=== PATIENT | male | born 1980 | race American Indian/Alaskan Native ===

== ENCOUNTER 2016-07-24 21:01 | Observation (INO) | payer MEDICAID ==
[2016-07-24 21:01] VITALS: BMI 26.4
[2016-07-24 21:05] VITALS: BP 133/79; PULSE 81; RESP 18; TEMP 98; O2SAT 98
--- NOTE | 2016-07-24 21:41 | ED PDOC ---
HPI: Psych/Substance Abuse Time Seen by Provider: 07/24/16 21:13 Chief Complaint (Nursing): Alcohol Ingestion History Per: Patient, EMS History/Exam Limitations: intoxication Additional Complaint(s): Pt. found on the street unable to stand up and walk due to ETOH intoxication. Pt. admits to drinking "vodka" today. Offers no complaints. Past Medical History Reviewed: Historical Data, Nursing Documentation, Vital Signs Vital Signs: Last Vital Signs Temp 98 F 07/24/16 21:02 Pulse 81 07/24/16 21:02 Resp 18 07/24/16 21:02 BP 133/79 07/24/16 21:02 Pulse Ox 98 07/24/16 21:02 - Medical History PMH: Anxiety, Depression Denies: Diabetes, Hepatitis, HIV, HTN, Chronic Kidney Disease, Seizures, Sexually Transmitted Disease - Family History Family History: States: Unknown Family Hx - Immunization History Hx Tetanus Toxoid Vaccination: No Hx Influenza Vaccination: No Hx Pneumococcal Vaccination: No - Home Medications Home Medications: Ambulatory Orders Medication Instructions Recorded FLUoxetine [Prozac] 20 mg PO DAILY #30 cap 01/24/16 Gabapentin [Neurontin] 300 mg PO BID #60 cap 01/24/16 Gabapentin [Neurontin] 600 mg PO HS #30 tab 01/24/16 - Allergies Allergies/Adverse Reactions: Allergies Allergy/AdvReac Type Severity Reaction Status Date / Time No Known Allergies Allergy Verified 01/16/16 15:19 Review of Systems Review Of Systems: ROS cannot be obtained secondary to pt's inabilty to answer questions. Physical Exam - Reviewed Nursing Documentation Reviewed: Yes Vital Signs Reviewed: Yes - Physical Exam Appears: Positive for: Well, Non-toxic, No Acute Distress Head Exam: Positive for: ATRAUMATIC, NORMAL INSPECTION, NORMOCEPHALIC Skin: Positive for: Normal Color, Warm. Negative for: Rash Eye Exam: Positive for: EOMI, Normal appearance, PERRL ENT: Positive for: Normal ENT Inspection Neck: Positive for: Normal, Painless ROM Cardiovascular/Chest: Positive for: Regular Rate, Rhythm Respiratory: Positive for: CNT, Normal Breath Sounds Gastrointestinal/Abdominal: Positive for: Normal Exam, Soft. Negative for: Tenderness Back: Positive for: Normal Inspection Extremity: Positive for: Normal ROM Neurologic/Psych: Positive for: Alert, Oriented, Gait (unsteady), Other ( slurred speech; AOB). Negative for: Aphasia, Facial Droop - ECG O2 Sat by Pulse Oximetry: 98 ED OBSERVATION Date of observation admission: 07/24/16 Time of observation admission: 21:41 - Observation admission statement Patient is being placed in observation because:: ETOH - Progress Note Progress Note: 07/24/16 21:41 Labs ordered. FSBS: 109 07/24/16 23:05 ETOH 449 Sleeping comfortably. easily arousable. Disposition - Clinical Impression Clinical Impression: Alcohol intoxication - Patient ED Disposition Is Patient to be Admitted: Transfer of Care (Signed out to Kin CHOWDHURY pending sobriety.) - Disposition Disposition Time: 00:00 Condition: STABLE
--- NOTE | 2016-07-25 01:48 | ED PDOC ---
- ECG O2 Sat by Pulse Oximetry: 98 Medical Decision Making Medical Decision Making: Case endorsed to filing writer from TRENTON Jarrell at midnight pending sobriety HPI: Psych/Substance Abuse Time Seen by Provider: 07/24/16 21:13 Chief Complaint (Nursing): Alcohol Ingestion History Per: Patient, EMS History/Exam Limitations: intoxication Additional Complaint(s): Pt. found on the street unable to stand up and walk due to ETOH intoxication. Pt. admits to drinking "vodka" today. Offers no complaints. ETOH 449 at 2140 Upon my eval, Pt asleep in NAD. Arousable to verbal stimuli Pt awake and urinated on the floor at 0230, asking for a mop to clean and apologetic. Stable for discharge on re-eval Disposition - Clinical Impression Clinical Impression: Alcohol intoxication - POA Present On Arrival: None - Disposition Disposition: Routine/Home Disposition Time: 02:56 Condition: STABLE
== END 2016-07-25 02:14 | disposition home or self-care (01) ==
LOC: H.ER 21:01 → H.EROBSV 21:27
PROVIDERS: ADMIT Emergency Medicine; ATTEND Emergency Medicine
DX: F10.129 Alcohol abuse with intoxication, unspecified (principal); Y90.8 Blood alcohol level of 240 mg/100 ml or more; F32.9 Major depressive disorder, single episode, unspecified; F41.9 Anxiety disorder, unspecified

== ENCOUNTER 2016-07-27 20:49 | Observation (INO) | payer MEDICAID ==
[2016-07-27 20:50] VITALS: BMI 26.4
[2016-07-27 23:20] LABS: ALB/GLOB RATIO 1.3 (1.0-2.1); ALKALINE PHOSPHATASE 49 U/L (38-126); ALT/SGPT 52 U/L (21-72); AST/SGOT 58 U/L (17-59); BILIRUBIN,TOTAL 0.4 mg/dl (0.2-1.3); BLOOD UREA NITROGEN 13 mg/dl (9-20); CALCIUM 8.4 mg/dL (8.4-10.2); CARBON DIOXIDE 31 mmol/L (22-30); CHLORIDE 104 mmol/L (98-107); GFR AFRICAN-AMERICAN > 60; GLUCOSE,RANDOM 152 mg/dL (75-110); POTASSIUM 3.8 MMOL/L (3.6-5.0); SODIUM 149 mmol/l (132-148)
[2016-07-27 23:32] LABS: ALCOHOL SERUM 506 mg/dl (0-10)
[2016-07-27 23:33] LABS: BASO % 0.8 % (0.0-2.0); EOS # 0.1 K/uL (0.0-0.7); EOS % 1.9 % (0.0-4.0); HEMATOCRIT 41.4 % (35.0-51.0); LYMPH # 3.1 K/uL (1.0-4.3); LYMPH % 55.1 % (20.0-40.0); MEAN CELL VOLUME 87.6 fl (80.0-94.0); MEAN CORPUSCULAR HEMOGLOBIN 29.2 pg (27.0-31.0); MEAN CORPUSCULAR HGB CONC 33.3 g/dL (33.0-37.0); MONO # 0.3 K/uL (0.0-0.8); MONO % 5.8 % (0.0-10.0); NEUT % 36.4 % (50.0-75.0); NRBC % 0.1 % (0.0-0.0); RED CELL DISTRIBUTION WIDTH 18.7 % (11.5-14.5); WHITE BLOOD COUNT 5.6 K/uL (4.8-10.8)
--- NOTE | 2016-07-28 00:24 | ED PDOC ---
HPI: Psych/Substance Abuse Time Seen by Provider: 07/27/16 22:10 Chief Complaint (Nursing): Alcohol Ingestion Chief Complaint (Provider): Alcohol Ingestion ED Caveat: Intoxicated History Per: Patient History/Exam Limitations: intoxication Current Symptoms Are (Timing): Still Present Suicide/Self Injury Attempted (Context): None Modifying Factor(s): Alcohol Additional Complaint(s): 35 year old male presents to ED due to alcohol intoxication and has a past history of anxiety and depression. Patient is unable to provide any history due to intoxicated state. PCP: None Past Medical History Reviewed: Historical Data, Nursing Documentation, Vital Signs Vital Signs: Last Vital Signs Temp 98.4 F 07/27/16 21:29 Pulse 83 07/27/16 21:29 Resp 16 07/27/16 21:29 BP 157/77 H 07/27/16 21:29 Pulse Ox 95 07/27/16 21:29 - Medical History PMH: Anxiety, Depression Denies: Diabetes, Hepatitis, HIV, HTN, Chronic Kidney Disease, Seizures, Sexually Transmitted Disease - Surgical History Surgical History: No Surg Hx - Family History Family History: States: No Known Family Hx - Social History Current smoker - smoking cessation education provided: Yes Alcohol: > 2 Drinks/Day - Immunization History Hx Tetanus Toxoid Vaccination: No Hx Influenza Vaccination: No Hx Pneumococcal Vaccination: No - Home Medications Home Medications: Ambulatory Orders Medication Instructions Recorded FLUoxetine [Prozac] 20 mg PO DAILY #30 cap 01/24/16 Gabapentin [Neurontin] 300 mg PO BID #60 cap 01/24/16 Gabapentin [Neurontin] 600 mg PO HS #30 tab 01/24/16 - Allergies Allergies/Adverse Reactions: Allergies Allergy/AdvReac Type Severity Reaction Status Date / Time No Known Allergies Allergy Verified 01/16/16 15:19 Review of Systems Review Of Systems: ROS cannot be obtained secondary to pt's inabilty to answer questions. Physical Exam - Reviewed Nursing Documentation Reviewed: Yes Vital Signs Reviewed: Yes - Physical Exam Appears: Positive for: No Acute Distress Skin: Positive for: Normal Color Cardiovascular/Chest: Positive for: Regular Rate, Rhythm Respiratory: Positive for: Normal Breath Sounds. Negative for: Respiratory Distress Gastrointestinal/Abdominal: Positive for: Normal Exam Extremity: Negative for: Deformity Neurologic/Psych: Positive for: Oriented, Gait (Unsteady), Other (Slurred speech ). Negative for: Alert (Somnolent but arousable), Motor/Sensory Deficits - Laboratory Results Result Diagrams: 07/27/16 23:30 07/27/16 23:06 - ECG O2 Sat by Pulse Oximetry: 95 (RA) Pulse Ox Interpretation: Normal Medical Decision Making Medical Decision Makin Initial impression: alcohol intoxication Initial plan: * EtOH serum * Labs * UDrug Screen * Accucheck * ED OBS Admission * UA All further documentation will take place in the ED OBS section of the chart. Scribe Attestation: Documented by Xena Arshad acting as a scribe for Jhonny Tran MD. Scribe Attestation: All medical record entries made by the Scribe were at my direction and personally dictated by me. I have reviewed the chart and agree that the record accurately reflects my personal performance of the history, physical exam, medical decision making, and the department course for this patient. I have also personally directed, reviewed, and agree with the discharge instructions and disposition. ED OBSERVATION Date of observation admission: 07/27/16 Time of observation admission: 23:24 - Observation admission statement Patient is being placed in observation because:: Alcohol intoxication - Goals of Observation Goals of observation are:: Clinical sobriety - Progress Note Progress Note: 07/28/16 00:28 Patient resting comfortably. 07/28/16 01:46 Patient resting comfortably. 07/28/16 03:04 Patient resting comfortably. 07/28/16 04:42 Patient resting comfortably. 07/28/16 06:12 Patient resting comfortably. 07/28/16 07:00 Patient signed out to Dr. Comer pending sobriety and re-evaluation. Disposition - Clinical Impression Clinical Impression: Alcohol abuse with uncomplicated intoxication - Patient ED Disposition Is Patient to be Admitted: Transfer of Care - Disposition Disposition: Transfer of Care Disposition Time: 22:00 Condition: GOOD Patient Signed Over To: Kings Comer Handoff Comments: Pending sobriety and re-evaluation - Pt Status Changed To: Hospital Disposition Of: Observation
[2016-07-28 06:38] VITALS: TEMP 98.1
--- NOTE | 2016-07-28 07:11 | ED PDOC ---
- Laboratory Results Result Diagrams: 07/27/16 23:30 07/27/16 23:06 - ECG O2 Sat by Pulse Oximetry: 96 - Progress ED Course And Treament: Assumed care from Dr Tran. Pending clinical sobriety and final disposition. Medical Decision Making Medical Decision Making: Pt is alert and awake. Ambulatory with steady gait. No criteria for crisis eval. Sathish SI/HI or any psychotic complains. NO psych behaviour. Disposition Doctor Will See Patient In The: Office Counseled Patient/Family Regarding: Studies Performed, Diagnosis, Need For Followup - Clinical Impression Clinical Impression: Alcohol abuse with uncomplicated intoxication - POA Present On Arrival: None - Disposition Disposition: Routine/Home Disposition Time: 11:58 Condition: GOOD
[2016-07-28 09:20] VITALS: RESP 18
[2016-07-28 12:05] VITALS: BP 129/79; PULSE 72
[2016-07-30 23:03] VITALS: O2SAT 96
== END 2016-07-28 11:58 | disposition home or self-care (01) ==
LOC: H.ER 20:49 → H.EROBSV 22:34
PROVIDERS: ADMIT Emergency Medicine; ATTEND Emergency Medicine
DX: F10.120 Alcohol abuse with intoxication, uncomplicated (principal); Y90.8 Blood alcohol level of 240 mg/100 ml or more; F41.8 Other specified anxiety disorders; F17.200 Nicotine dependence, unspecified, uncomplicated

== ENCOUNTER 2016-07-28 17:56 | Emergency (ER) | payer MEDICAID ==
[2016-07-28 17:56] VITALS: BMI 26.4
[2016-07-28 18:04] VITALS: BP 145/76; PULSE 80; RESP 18; TEMP 98.6; O2SAT 96
--- NOTE | 2016-07-28 18:11 | ED PDOC ---
HPI: Psych/Substance Abuse Time Seen by Provider: 07/28/16 18:06 Chief Complaint (Nursing): Alcohol Ingestion Chief Complaint (Provider): "I just lay down" History Per: Patient Additional Complaint(s): Pt reports [facility]. He was tired and admits he was drinking. He lied down on the ground and then bystanders called 911. No fall No confusion No injury No suicidal or homicidal ideation He reports [facility] just [facility] to [facility] to be [facility]. Past Medical History Reviewed: Historical Data, Nursing Documentation, Vital Signs Vital Signs: Last Vital Signs Temp 98.6 F 07/28/16 18:01 Pulse 80 07/28/16 18:01 Resp 18 07/28/16 18:01 BP 145/76 07/28/16 18:01 Pulse Ox 96 07/28/16 18:01 - Medical History PMH: Anxiety, Depression Denies: Diabetes, Hepatitis, HIV, HTN, Chronic Kidney Disease, Seizures, Sexually Transmitted Disease - Family History Family History: States: Unknown Family Hx - Social History Alcohol: > 2 Drinks/Day - Immunization History Hx Tetanus Toxoid Vaccination: No Hx Influenza Vaccination: No Hx Pneumococcal Vaccination: No - Home Medications Home Medications: Ambulatory Orders Medication Instructions Recorded FLUoxetine [Prozac] 20 mg PO DAILY #30 cap 01/24/16 Gabapentin [Neurontin] 300 mg PO BID #60 cap 01/24/16 Gabapentin [Neurontin] 600 mg PO HS #30 tab 01/24/16 - Allergies Allergies/Adverse Reactions: Allergies Allergy/AdvReac Type Severity Reaction Status Date / Time No Known Allergies Allergy Verified 01/16/16 15:19 Review of Systems ROS Statement: Except As Marked, All Systems Reviewed And Found Negative Neurological: Negative for: Weakness, Numbness, Confusion, Seizures, Altered Mental Status, Dizziness Psych: Negative for: Anxiety, Depression Physical Exam - Reviewed Nursing Documentation Reviewed: Yes Vital Signs Reviewed: Yes - Physical Exam Appears: Positive for: Well, No Acute Distress (slightly unkempt) Head Exam: Positive for: ATRAUMATIC Skin: Positive for: Warm, Dry Eye Exam: Positive for: EOMI, PERRL, Conjunctival injection ENT: Positive for: Normal ENT Inspection Neck: Positive for: Painless ROM, Supple Cardiovascular/Chest: Positive for: Regular Rate, Rhythm, Chest Non Tender. Negative for: Murmur Respiratory: Positive for: Normal Breath Sounds. Negative for: Wheezing, Respiratory Distress Gastrointestinal/Abdominal: Positive for: Soft. Negative for: Tenderness Back: Positive for: Normal Inspection Extremity: Positive for: Normal ROM. Negative for: Deformity Lymphatic: Negative for: Adenopathy Neurologic/Psych: Positive for: Alert, stock broker II-XII (intact), Oriented (x3), Gait (steady). Negative for: Motor/Sensory Deficits, Aphasia, Other (signs of withdrawal) - ECG O2 Sat by Pulse Oximetry: 96 Disposition - Clinical Impression Clinical Impression: Alcohol abuse - Disposition Referrals: [facility] [Outside] [facility] [Outside] Disposition: Routine/Home Disposition Time: 18:08 Condition: GOOD Additional Instructions: DRINK IN MODERATION OR DON'T DRINK AT ALL TRY TO STAY INDOORS Instructions: Abuse of Alcohol (ED)
== END 2016-07-28 18:31 | disposition home or self-care (01) ==
LOC: H.ER 17:56
DX: F10.129 Alcohol abuse with intoxication, unspecified (principal)

== ENCOUNTER 2016-07-28 18:51 | Inpatient (IN) | payer MEDICAID ==
[2016-07-28 18:51] VITALS: BMI 26.4
[2016-07-28 19:49] LABS: BASO % 0.8 % (0.0-2.0); EOS # 0.1 K/uL (0.0-0.7); EOS % 2.3 % (0.0-4.0); HEMATOCRIT 43.3 % (35.0-51.0); LYMPH # 3.9 K/uL (1.0-4.3); LYMPH % 65.3 % (20.0-40.0); MEAN CELL VOLUME 87.7 fl (80.0-94.0); MEAN CORPUSCULAR HEMOGLOBIN 28.9 pg (27.0-31.0); MEAN PLATELET VOLUME 8.1 fl (7.2-11.7); MONO # 0.3 K/uL (0.0-0.8); MONO % 4.4 % (0.0-10.0); NEUT # 1.6 K/uL (1.8-7.0); NEUT % 27.2 % (50.0-75.0); NRBC % 0.1 % (0.0-0.0); RED CELL DISTRIBUTION WIDTH 18.8 % (11.5-14.5)
[2016-07-28] MEDS ORDERED: Multivitamin (MVI) 10 ML, Thiamine 100 MG, Folic Acid 1 MG in Sodium Chloride 0.9% 1,00... IV ONE (20:00)
[2016-07-28 20:17] LABS: ALB/GLOB RATIO 1.3 (1.0-2.1); ALKALINE PHOSPHATASE 52 U/L (38-126); ALT/SGPT 56 U/L (21-72); AST/SGOT 57 U/L (17-59); BILIRUBIN,TOTAL 0.5 mg/dl (0.2-1.3); BLOOD UREA NITROGEN 10 mg/dl (9-20); CALCIUM 8.1 mg/dL (8.4-10.2); CARBON DIOXIDE 28 mmol/L (22-30); CHLORIDE 103 mmol/L (98-107); GFR AFRICAN-AMERICAN > 60; GLUCOSE,RANDOM 98 mg/dL (75-110); POTASSIUM 4.3 MMOL/L (3.6-5.0); SODIUM 147 mmol/l (132-148); TOTAL PROTEIN 8.4 G/DL (6.3-8.2)
--- NOTE | 2016-07-28 20:27 | ED PDOC ---
HPI: Psych/Substance Abuse Time Seen by Provider: 07/28/16 19:05 Chief Complaint (Nursing): Altered Mental Status Chief Complaint (Provider): alcohol intoxication Additional Complaint(s): Pt found on the ground outdoors. Was just in this ER about an hour ago for alcohol intox. At that time he was alert and oriented without complaint. Currently he is unable to answer questions. Multiple visits for alcohol intoxication. Past Medical History Reviewed: Historical Data, Nursing Documentation, Vital Signs, Unable To Obtain (obtained from previous charts) Vital Signs: Last Vital Signs Temp 98.8 F 07/28/16 18:58 Pulse 84 07/28/16 18:58 Resp 16 07/28/16 18:58 BP Pulse Ox 100 07/28/16 18:58 - Medical History PMH: Anxiety, Depression Denies: Diabetes, Hepatitis, HIV, HTN, Chronic Kidney Disease, Seizures, Sexually Transmitted Disease - Family History Family History: States: Unknown Family Hx - Immunization History Hx Tetanus Toxoid Vaccination: No Hx Influenza Vaccination: No Hx Pneumococcal Vaccination: No - Home Medications Home Medications: Ambulatory Orders Medication Instructions Recorded FLUoxetine [Prozac] 20 mg PO DAILY #30 cap 01/24/16 Gabapentin [Neurontin] 300 mg PO BID #60 cap 01/24/16 Gabapentin [Neurontin] 600 mg PO HS #30 tab 01/24/16 - Allergies Allergies/Adverse Reactions: Allergies Allergy/AdvReac Type Severity Reaction Status Date / Time No Known Allergies Allergy Verified 01/16/16 15:19 Review of Systems Review Of Systems: ROS cannot be obtained secondary to pt's inabilty to answer questions. Physical Exam - Reviewed Nursing Documentation Reviewed: Yes Vital Signs Reviewed: Yes - Physical Exam Appears: Positive for: In Acute Distress Head Exam: Positive for: ATRAUMATIC, NORMOCEPHALIC Skin: Positive for: Warm, Dry Eye Exam: Positive for: EOMI, PERRL, Conjunctival injection ENT: Positive for: Other (alcohol on breath) Neck: Positive for: Supple, Trachea Midline Cardiovascular/Chest: Positive for: Regular Rate, Rhythm, Chest Non Tender. Negative for: Murmur Respiratory: Positive for: Normal Breath Sounds. Negative for: Wheezing, Respiratory Distress Gastrointestinal/Abdominal: Positive for: Soft. Negative for: Tenderness Back: Positive for: Normal Inspection. Negative for: Vertebral Tenderness Extremity: Positive for: Normal ROM. Negative for: Pedal Edema Lymphatic: Negative for: Adenopathy Neurologic/Psych: Positive for: Other (obtunded but localizes pain and moans, + spontaneous eye opening, +gag reflex). Negative for: Alert, Oriented, Motor/ Sensory Deficits - Laboratory Results Result Diagrams: 07/29/16 11:20 07/29/16 11:25 Interpretation Of Abn Labs: Labs demonstrate markedly elevated blood alcohol level - ECG O2 Sat by Pulse Oximetry: 100 Disposition - Clinical Impression Clinical Impression: Alcohol intoxication Discussed With Dr.: Brian Reese Comment: Pt needs prolonged observation for potentially life threatening level of alcohol Counseled Patient/Family Regarding: Studies Performed - Disposition Disposition Time: 19:20 Condition: GUARDED - Pt Status Changed To: Hospital Disposition Of: Observation - POA Present On Arrival: None
[2016-07-28 21:03] LABS: ALCOHOL SERUM 641 mg/dl (0-10)
--- NOTE | 2016-07-28 22:21 | CT ---
EXAM: CT Head Without Intravenous Contrast CLINICAL HISTORY: 35 years old, male; Signs and symptoms; Altered mental status/memory loss; Other: Alcohol intox. ; Additional info: AMS. Sent phy. Doc. With request TECHNIQUE: Axial computed tomography images of the head/brain without intravenous contrast. This CT exam was performed using one or more of the following dose reduction techniques: automated exposure control, adjustment of the mA and/or kV according to patient size, and/or use of iterative reconstruction technique. Coronal and sagittal reformatted images were created and reviewed. COMPARISON: CT - HEAD W/O CONTRAST 10/11/2014 1:10:24 AM FINDINGS: Brain: Minimal atrophy. No intracranial hemorrhage. No mass. No definite edema. Ventricles: No hydrocephalus. Bones/joints: No acute fracture. Soft tissues: Unremarkable. Sinuses: Scattered minimal mucosal thickening. Small LEFT maxillary retention cyst. Mastoid air cells: No mastoid effusion. Orbits: Unremarkable as visualized. IMPRESSION: 1. No acute intracranial abnormality. 2. Incidental/non-acute findings are described above.
[2016-07-29] MEDS ORDERED: Dextrose 5%/Lactated Ringer's 1,000 ML IV SCH (03:45)
[2016-07-29] MEDS ORDERED: Multivitamin (MVI) 10 ML, Thiamine 100 MG, Folic Acid 1 MG in Sodium Chloride 0.9% 1,00... IV ONE (10:47)
[2016-07-29 11:37] LABS: MEAN CELL VOLUME 86.6 fl (80.0-94.0); MEAN CORPUSCULAR HEMOGLOBIN 28.8 pg (27.0-31.0); MEAN CORPUSCULAR HGB CONC 33.3 g/dL (33.0-37.0); WHITE BLOOD COUNT 6.1 K/uL (4.8-10.8)
[2016-07-29 11:52] LABS: ALCOHOL SERUM 206 mg/dl (0-10); AMYLASE 754 U/L (30-110); BLOOD UREA NITROGEN 11 mg/dl (9-20); CALCIUM 7.8 mg/dL (8.4-10.2); CARBON DIOXIDE 26 mmol/L (22-30); CHLORIDE 101 mmol/L (98-107); GFR AFRICAN-AMERICAN > 60; GLUCOSE,RANDOM 101 mg/dL (75-110); LIPASE 224 U/L (23-300); POTASSIUM 3.4 MMOL/L (3.6-5.0); SODIUM 141 mmol/l (132-148)
[2016-07-29] MEDS ORDERED: Potassium Chloride 20 mEq/15 ml LIQ UD PO ONE (13:00)
[2016-07-30] MEDS ORDERED: Multivitamin (MVI) 10 ML, Thiamine 100 MG, Folic Acid 1 MG in Sodium Chloride 0.9% 1,00... IV ONE (05:03)
[2016-07-30 07:31] LABS: AMYLASE 481 U/L (30-110); BLOOD UREA NITROGEN 7 mg/dl (9-20); CALCIUM 7.8 mg/dL (8.4-10.2); CARBON DIOXIDE 28 mmol/L (22-30); CHLORIDE 99 mmol/L (98-107); GFR AFRICAN-AMERICAN > 60; GLUCOSE,RANDOM 76 mg/dL (75-110); POTASSIUM 3.8 MMOL/L (3.6-5.0); SODIUM 136 mmol/l (132-148)
--- NOTE | 2016-07-30 08:00 | CP.PCM.CON ---
History of Present Illness - History of Present Illness History of Present Illness: Psychiatry consult called for evaluation of ETOH withdrawal HPI: 35 year old male w/ previous psychiatric admission for depression and alcohol abuse, was admitted for treatment of ETOH withdrawal. Patient denies current psychiatric compliants. No depression/anxiety/suicidal or homicidal ideation or psychosis. He is not interested in psychiatric treatment or psychotropic medications at this time. He denies acute symptoms of ETOH withdrawal. +Chronic alcohol abuse. Past psych hx: Previous admissions to [facility] and [facility]. No currently compliant with any psychiatric tx. PMHx: Denies acute medical problems SHx: +Chronic ETOH abuse. From [facility]. Family Hx: Unknown family history (family is in [facility]) All: NKDA MSE: A + O x 3, calm/cooperative, normal speech/rhythm volume, thought process linear/coherent, thought content- no delusions, no hallucinations, NO SI/HI. Poor insight/judgment re: chronic alcohol abuse. Impression: Alcohol Abuse, not currently in withdrawal Recommendations: -No acute psychiatric admission indicated at this time -Patient not agreeable to psychotropic medications at this time -Patient would benefit from outpatient psychotherapy and substance abuse treatment Past Patient History - Infectious Disease Hx of Infectious Diseases: None - Past Medical History & Family History Past Medical History?: Yes - Past Social History Smoking Status: Never Smoked - CARDIAC Hx Hypertension: No - PULMONARY Hx Respiratory Disorders: No - NEUROLOGICAL Hx Seizures: No - HEENT Hx HEENT Problems: No - RENAL Hx Chronic Kidney Disease: No - ENDOCRINE/METABOLIC Hx Endocrine Disorders: No - HEMATOLOGICAL/ONCOLOGICAL Hx Human Immunodeficiency Virus (HIV): No - INTEGUMENTARY Hx Dermatological Problems: No - MUSCULOSKELETAL/RHEUMATOLOGICAL Hx Musculoskeletal Disorders: No Hx Falls: No - GASTROINTESTINAL Hx Gastrointestinal Disorders: No - GENITOURINARY/GYNECOLOGICAL Hx Sexually Transmitted Disorders: No - PSYCHIATRIC Hx Anxiety: Yes Hx Depression: Yes - SURGICAL HISTORY Hx Surgeries: No - ANESTHESIA Hx Anesthesia: No Meds Allergies/Adverse Reactions: Allergies Allergy/AdvReac Type Severity Reaction Status Date / Time No Known Allergies Allergy Verified 01/16/16 15:19 - Medications Medications: Current Medications Acetaminophen (Tylenol 325mg Tab) 650 mg PO Q4 PRN PRN Reason: Headache Last Admin: 07/30/16 05:06 Dose: 650 mg Chlordiazepoxide (Librium) 50 mg PO Q4H PRN PRN Reason: Symptoms of alcohol withdrawl Chlordiazepoxide (Librium) 25 mg PO Q8 RAMA Last Admin: 07/30/16 01:13 Dose: 25 mg Multivitamins/Vitamin C 10 ml/Thiamine HCl 100 mg/ Folic Acid 1 mg/ Sodium Chloride 1,011.2 mls @ 100 mls/hr IV .Q10H7M ONE Stop: 07/30/16 15:09 Last Admin: 07/30/16 06:59 Dose: 100 mls/hr Lorazepam (Ativan) 1 mg IVP Q4H PRN PRN Reason: Symptoms of alcohol withdrawl Last Admin: 07/29/16 20:46 Dose: 1 mg Results - Vital Signs Recent Vital Signs: Last Vital Signs Temp 98.6 F 07/30/16 05:17 Pulse 61 07/30/16 05:17 Resp 20 07/30/16 05:17 BP 146/87 07/30/16 05:17 Pulse Ox 98 07/30/16 05:17 - Labs Result Diagrams: 07/29/16 11:20 07/30/16 05:45 Labs: Laboratory Results - last 24 hr 07/29/16 07/29/16 07/30/16 11:20 11:25 05:45 WBC 6.1 RBC 4.50 Hgb 13.0 Hct 39.0 MCV 86.6 MCH 28.8 MCHC 33.3 RDW 18.0 H Plt Count 299 Sodium 141 136 Potassium 3.4 L 3.8 Chloride 101 99 Carbon Dioxide 26 28 Anion Gap 17 13 BUN 11 7 L Creatinine 0.8 0.8 Est GFR ( Amer) > 60 > 60 Est GFR (Non-Af Amer) > 60 > 60 Random Glucose 101 76 Calcium 7.8 L 7.8 L Amylase 754 H 481 H D Lipase 224 Alcohol, Quantitative 206 H
--- NOTE | 2016-07-30 11:24 | CP.PCM.DIS ---
Provider - Provider Date of Admission: 07/28/16 19:22 Attending physician: Brian Reese MD Time Spent in preparation of Discharge (in minutes): 45 Diagnosis - Discharge Diagnosis (1) Alcohol abuse with intoxication Status: Acute Comment: Final etOH: <10, no DTs, pt safe for discharge. Hospital Course - Lab Results Lab Results: Most Recent Lab Values WBC 6.1 K/uL (4.8-10.8) 07/29/16 11:20 RBC 4.50 Mil/uL (4.40-5.90) 07/29/16 11:20 Hgb 13.0 g/dL (12.0-18.0) 07/29/16 11:20 Hct 39.0 % (35.0-51.0) 07/29/16 11:20 MCV 86.6 fl (80.0-94.0) 07/29/16 11:20 MCH 28.8 pg (27.0-31.0) 07/29/16 11:20 MCHC 33.3 g/dL (33.0-37.0) 07/29/16 11:20 RDW 18.0 % (11.5-14.5) H 07/29/16 11:20 Plt Count 299 K/uL (130-400) 07/29/16 11:20 MPV 8.1 fl (7.2-11.7) 07/28/16 19:35 Neut % (Auto) 27.2 % (50.0-75.0) L 07/28/16 19:35 Lymph % (Auto) 65.3 % (20.0-40.0) H 07/28/16 19:35 [place] % (Auto) 4.4 % (0.0-10.0) 07/28/16 19:35 Eos % (Auto) 2.3 % (0.0-4.0) 07/28/16 19:35 Baso % (Auto) 0.8 % (0.0-2.0) 07/28/16 19:35 Neut # 1.6 K/uL (1.8-7.0) L 07/28/16 19:35 Lymph # 3.9 K/uL (1.0-4.3) 07/28/16 19:35 [place] # 0.3 K/uL (0.0-0.8) 07/28/16 19:35 Eos # 0.1 K/uL (0.0-0.7) 07/28/16 19:35 Baso # 0.0 K/uL (0.0-0.2) 07/28/16 19:35 Sodium 136 mmol/l (132-148) 07/30/16 05:45 Potassium 3.8 MMOL/L (3.6-5.0) 07/30/16 05:45 Chloride 99 mmol/L (98-107) 07/30/16 05:45 Carbon Dioxide 28 mmol/L (22-30) 07/30/16 05:45 Anion Gap 13 (10-20) 07/30/16 05:45 BUN 7 mg/dl (9-20) L 07/30/16 05:45 Creatinine 0.8 mg/dL (0.8-1.5) 07/30/16 05:45 Est GFR ( Amer) > 60 07/30/16 05:45 Est GFR (Non-Af Amer) > 60 07/30/16 05:45 POC Glucose (mg/dL) 83 mg/dL (65-110) 07/28/16 18:55 Random Glucose 76 mg/dL (75-110) 07/30/16 05:45 Calcium 7.8 mg/dL (8.4-10.2) L 07/30/16 05:45 Total Bilirubin 0.5 mg/dl (0.2-1.3) 07/28/16 19:35 AST 57 U/L (17-59) 07/28/16 19:35 ALT 56 U/L (21-72) 07/28/16 19:35 Alkaline Phosphatase 52 U/L (38-126) 07/28/16 19:35 Total Protein 8.4 G/DL (6.3-8.2) H 07/28/16 19:35 Albumin 4.7 g/dL (3.5-5.0) 07/28/16 19:35 Globulin 3.7 gm/dL (2.2-3.9) 07/28/16 19:35 Albumin/Globulin Ratio 1.3 (1.0-2.1) 07/28/16 19:35 Amylase 481 U/L (30-110) H D 07/30/16 05:45 Lipase 224 U/L (23-300) 07/29/16 11:25 Urine Opiates Screen Negative (NEGATIVE) 07/28/16 19:35 Urine Methadone Screen Negative (NEGATIVE) 07/28/16 19:35 Ur Barbiturates Screen Negative (NEGATIVE) 07/28/16 19:35 Ur Phencyclidine Scrn Negative (NEGATIVE) 07/28/16 19:35 Ur Amphetamines Screen Negative (NEGATIVE) 07/28/16 19:35 U Benzodiazepines Scrn Negative (NEGATIVE) 07/28/16 19:35 U Oth Cocaine Metabols Negative (NEGATIVE) 07/28/16 19:35 U Cannabinoids Screen Negative (NEGATIVE) 07/28/16 19:35 Alcohol, Quantitative 206 mg/dl (0-10) H 07/29/16 11:25 - Hospital Course Hospital Course: Patient seen and examined at bedside with attending [id number] admitted with significant alcohol intoxication, which is resolving (etOH-206 ). He is w/o signs or symptoms of DTs and is stable for discharge to home. Discharge Exam - Head Exam Head Exam: ATRAUMATIC, NORMOCEPHALIC - Eye Exam Eye Exam: EOMI, PERRL. absent: Nystagmus - ENT Exam ENT Exam: Mucous Membranes Moist, Normal Exam - Respiratory Exam Respiratory Exam: Clear to PA & Lateral, NORMAL BREATHING PATTERN. absent: Rales, Wheezes - Cardiovascular Exam Cardiovascular Exam: REGULAR RHYTHM. absent: JVD - GI/Abdominal Exam GI & Abdominal Exam: Normal Bowel Sounds, Soft. absent: Tenderness - Extremities Exam Extremities exam: normal capillary refill, pedal pulses present - Neurological Exam Neurological exam: Alert, Oriented x3 - Psychiatric Exam Psychiatric exam: Normal Affect, Normal Mood - Skin Skin Exam: Normal Color, Warm Discharge Plan - Follow Up Plan Condition: GUARDED Disposition: HOME/ ROUTINE Patient education suggested?: Yes Instructions: Alcohol Intoxication (DC), Abuse of Alcohol (DC) Referrals: Brian Reese MD [Staff Provider] - 1 Week
--- NOTE | 2016-07-30 11:39 | CP.PCM.DIS ---
Provider - Provider Date of Admission: 07/28/16 19:22 Attending physician: Brian Reese MD Time Spent in preparation of Discharge (in minutes): 45 Hospital Course - Lab Results Lab Results: Most Recent Lab Values WBC 6.1 K/uL (4.8-10.8) 07/29/16 11:20 RBC 4.50 Mil/uL (4.40-5.90) 07/29/16 11:20 Hgb 13.0 g/dL (12.0-18.0) 07/29/16 11:20 Hct 39.0 % (35.0-51.0) 07/29/16 11:20 MCV 86.6 fl (80.0-94.0) 07/29/16 11:20 MCH 28.8 pg (27.0-31.0) 07/29/16 11:20 MCHC 33.3 g/dL (33.0-37.0) 07/29/16 11:20 RDW 18.0 % (11.5-14.5) H 07/29/16 11:20 Plt Count 299 K/uL (130-400) 07/29/16 11:20 MPV 8.1 fl (7.2-11.7) 07/28/16 19:35 Neut % (Auto) 27.2 % (50.0-75.0) L 07/28/16 19:35 Lymph % (Auto) 65.3 % (20.0-40.0) H 07/28/16 19:35 [place] % (Auto) 4.4 % (0.0-10.0) 07/28/16 19:35 Eos % (Auto) 2.3 % (0.0-4.0) 07/28/16 19:35 Baso % (Auto) 0.8 % (0.0-2.0) 07/28/16 19:35 Neut # 1.6 K/uL (1.8-7.0) L 07/28/16 19:35 Lymph # 3.9 K/uL (1.0-4.3) 07/28/16 19:35 [place] # 0.3 K/uL (0.0-0.8) 07/28/16 19:35 Eos # 0.1 K/uL (0.0-0.7) 07/28/16 19:35 Baso # 0.0 K/uL (0.0-0.2) 07/28/16 19:35 Sodium 136 mmol/l (132-148) 07/30/16 05:45 Potassium 3.8 MMOL/L (3.6-5.0) 07/30/16 05:45 Chloride 99 mmol/L (98-107) 07/30/16 05:45 Carbon Dioxide 28 mmol/L (22-30) 07/30/16 05:45 Anion Gap 13 (10-20) 07/30/16 05:45 BUN 7 mg/dl (9-20) L 07/30/16 05:45 Creatinine 0.8 mg/dL (0.8-1.5) 07/30/16 05:45 Est GFR ( Amer) > 60 07/30/16 05:45 Est GFR (Non-Af Amer) > 60 07/30/16 05:45 POC Glucose (mg/dL) 83 mg/dL (65-110) 07/28/16 18:55 Random Glucose 76 mg/dL (75-110) 07/30/16 05:45 Calcium 7.8 mg/dL (8.4-10.2) L 07/30/16 05:45 Total Bilirubin 0.5 mg/dl (0.2-1.3) 07/28/16 19:35 AST 57 U/L (17-59) 07/28/16 19:35 ALT 56 U/L (21-72) 07/28/16 19:35 Alkaline Phosphatase 52 U/L (38-126) 07/28/16 19:35 Total Protein 8.4 G/DL (6.3-8.2) H 07/28/16 19:35 Albumin 4.7 g/dL (3.5-5.0) 07/28/16 19:35 Globulin 3.7 gm/dL (2.2-3.9) 07/28/16 19:35 Albumin/Globulin Ratio 1.3 (1.0-2.1) 07/28/16 19:35 Amylase 481 U/L (30-110) H D 07/30/16 05:45 Lipase 224 U/L (23-300) 07/29/16 11:25 Urine Opiates Screen Negative (NEGATIVE) 07/28/16 19:35 Urine Methadone Screen Negative (NEGATIVE) 07/28/16 19:35 Ur Barbiturates Screen Negative (NEGATIVE) 07/28/16 19:35 Ur Phencyclidine Scrn Negative (NEGATIVE) 07/28/16 19:35 Ur Amphetamines Screen Negative (NEGATIVE) 07/28/16 19:35 U Benzodiazepines Scrn Negative (NEGATIVE) 07/28/16 19:35 U Oth Cocaine Metabols Negative (NEGATIVE) 07/28/16 19:35 U Cannabinoids Screen Negative (NEGATIVE) 07/28/16 19:35 Alcohol, Quantitative 206 mg/dl (0-10) H 07/29/16 11:25 Discharge Exam - Head Exam Head Exam: ATRAUMATIC, NORMOCEPHALIC Discharge Plan - Follow Up Plan Condition: GUARDED Disposition: HOME/ ROUTINE
[2016-07-30 12:36] VITALS: BP 153/95; PULSE 64; RESP 16; TEMP 98.1; O2SAT 98
== END 2016-07-30 14:05 | disposition home or self-care (01) | DRG 751 ==
LOC: H.ER 18:51 → OBSVTOIN 19:22 → H.EROBSV 19:22 → H.ERHOLD 19:22 → H.TEL 23:11
PROVIDERS: ADMIT Family Medicine; ATTEND Family Medicine
DX: F10.129 Alcohol abuse with intoxication, unspecified (principal); F32.9 Major depressive disorder, single episode, unspecified; F41.9 Anxiety disorder, unspecified; Y90.8 Blood alcohol level of 240 mg/100 ml or more